=== PATIENT | male | born 1990 | race Caucasian/White ===

== ENCOUNTER 2019-11-16 18:42 | Emergency (ER) | payer MEDICARE ==
[~2019-11-16] VITALS: Ht 172.7 cm; Wt 106.8 kg
[2019-11-16 18:47] VITALS: Ht 172.7 cm; Wt 106.8 kg
[2019-11-16] MEDS ORDERED: KLONOPIN1 MG PO (20:27)
[2019-11-16 20:47] VITALS: BP 136/84
== END 2019-11-16 20:47 | disposition home or self-care (01) ==
LOC: D.ER 18:42
DX: F31.9 Bipolar disorder, unspecified (principal); R46.89 Other symptoms and signs involving appearance and behavior